=== PATIENT | male | born 1985 | race Caucasian/White ===

== ENCOUNTER 2017-02-08 15:20 | Emergency (ER) | payer OTHER ==
[~2017-02-08] VITALS: Ht 175.3 cm; Wt 81.8 kg
[2017-02-08 15:20] VITALS: BP 158/101
[2017-02-08] MEDS ORDERED: LIDOCAINE 1% MDV 20ML VIAL IM ONE (16:00)
[2017-02-08] MEDS ORDERED: BACI500O8 TOP (16:23)
== END 2017-02-08 16:40 | disposition home or self-care (01) ==
LOC: M ED 15:20
DX: S01.511A Laceration without foreign body of lip, initial encounter (principal); S02.5XXA Fracture of tooth (traumatic), initial encounter for closed fracture; W21.210A Struck by ice hockey stick, initial encounter; Y92.330 Ice skating rink (indoor) (outdoor) as the place of occurrence of the external cause; Y93.22 Activity, ice hockey; Y99.8 Other external cause status

== ENCOUNTER 2017-02-19 15:53 | Emergency (ER) | payer OTHER ==
[~2017-02-19] VITALS: Ht 175.3 cm; Wt 81.8 kg
[2017-02-19 15:53] VITALS: BP 145/96
[~2017-02-19 15:53] MED LIST: BACI500O8 TOP
== END 2017-02-19 16:52 | disposition left against medical advice (07) ==
LOC: M ED 15:53
DX: L98.9 Disorder of the skin and subcutaneous tissue, unspecified (principal); Z53.21 Procedure and treatment not carried out due to patient leaving prior to being seen by health care provider